=== PATIENT | male | born 1945 | race Caucasian/White ===

== ENCOUNTER 2020-02-06 08:32 | Day surgery (SDC) | payer MEDICARE, BC ==
[2020-01-29 17:01] LABS: BASOPHILS % (AUTO) 0.6 % (0-1); EOSINOPHILS # (AUTO) 0.2 X10'3 (0-0.9); EOSINOPHILS % (AUTO) 2.7 % (0-6); LYMPHOCYTES # (AUTO) 2.2 X10'3 (1.1-4.8); LYMPHOCYTES % (AUTO) 29.1 % (21-51); MEAN CORPUSCULAR HEMOGLOBIN 30.5 PG (27.0-31.0); MEAN CORPUSCULAR HGB CONC 33.4 g/dL (33.0-36.5); MEAN CORPUSCULAR VOLUME 91.4 FL (78-98); MEAN PLATELET VOLUME 7.5 FL (7.4-10.4); MONOCYTES # (AUTO) 0.6 X10'3 (0-0.9); MONOCYTES % (AUTO) 7.7 % (2-12); NEUTROPHILS # (AUTO) 4.4 X10'3 (1.8-7.7); NEUTROPHILS % (AUTO) 59.9 % (42-75); PRE OP HEMATOCRIT 47.5 % (42.0-52.0); PRE OP HEMOGLOBIN 15.9 g/dL (14.0-17.9); PRE OP PLATELET COUNT 190 X10'3 (140-440); PRE OP PROTIME 10.8 SECONDS (9.0-12.0); RED CELL DISTRIBUTION WIDTH 13.8 % (11.5-14.5)
[2020-01-29 17:05] LABS: ALBUMIN 4.2 G/DL (3.4-5.0); ALBUMIN/GLOBULIN RATIO 1.4 (1.1-1.5); ALKALINE PHOSPHATASE 61 IU/L (46-116); BLOOD UREA NITROGEN 15 MG/DL (7-18); BUN/CREATININE RATIO 12.4 (5.4-32.0); CHLORIDE 109 MMOL/L (99-107); CREATININE 1.21 MG/DL (0.60-1.10); PRE OP ALT 56 U/L (30-65); PRE OP ANION GAP 7 (8-16); PRE OP AST 40 U/L (10-37); PRE OP GLUCOSE 92 MG/DL (70-104); PRE OP POTASSIUM 3.9 MMOL/L (3.4-5.1); PRE OP SODIUM 143 MMOL/L (135-145); TOTAL CARBON DIOXIDE 27.2 MMOL/L (24-32); TOTAL PROTEIN 7.1 G/DL (6.4-8.2); eGFR 59 ML/MIN
[~2020-02-06] VITALS: Ht 182.9 cm; Wt 104.3 kg
[2020-02-06] VITALS (19 sets, daily range): BP systolic 125–195; BP diastolic 77–104
[~2020-02-06 08:32] MED LIST: ATOR10TA70 PO; FLO0.4C PO; LISI40TA4 PO; SILD20TA2; cefazolin/dext.iso 2gm/100ml 100 ML IV ONE; famotidine 20mg tablet PO ONE; ringers solution, lacted 1,000 ML IV SCH
[2020-02-06] MEDS ORDERED: ringers solution, lacted 1,000 ML IV SCH (11:11)
[2020-02-06] MEDS ORDERED: proCHLORperazine 10 MG/2 ml inj IV PRN ×2 (11:15→14:05)
[2020-02-06] MEDS ORDERED: morphine 2 MG/ML inj. syringe IV PRN (11:15)
[2020-02-06] MEDS ORDERED: ondansetron/PF 4mg/2ml inj IV PRN ×2 (11:15→14:05)
[2020-02-06] MEDS ORDERED: morphine 4 MG/ML inj SYRINge IV PRN (11:15)
[2020-02-06] MEDS ORDERED: meperidine/PF 25mg/ml syringe IV PRN ×3 (11:15)
[2020-02-06] MEDS ORDERED: MIDAZolam 5mg/5ml vial ONE (12:06)
[2020-02-06] MEDS ORDERED: fentaNYL/PF 50MCG/1 ML 2ML syringe ONE (12:06)
[2020-02-06] MEDS ORDERED: propofol inj 20 ML IV ONE (13:00)
--- NOTE | 2020-02-06 13:59 | NUR ---
Received from OR via , accompanied by Anesthesiologist DR BUTTS and report given by Anesthesiolgist. AWAKENS TO VOICE. VITALS STABLE. BROCK PAIN. CBI WITH LITWE PINK PALE URINE IN BAG.
[2020-02-06] MEDS ORDERED: oxybutynin 5mg tablet PO PRN (14:05)
[2020-02-06] MEDS ORDERED: zolpidem 5mg tablet PO PRN (14:05)
[2020-02-06] MEDS ORDERED: mag hydrox/Alum hydrox/simeth 30ml oral suspension PO PRN (14:05)
[2020-02-06] MEDS ORDERED: LIDOcaine 2% 10ml TOPICAL JELLY (Urojet) TP ONE (14:05)
[2020-02-06] MEDS ORDERED: HYDROcodone/acetaminophen 10/325mg tab PO PRN (14:05)
[2020-02-06] MEDS ORDERED: acetaminophen 325mg tablet PO PRN (14:05)
--- NOTE | 2020-02-06 14:49 | NUR ---
Report called to receiving nurse. Transferred via BED Belongings . Special Issues communicated to receiving nurse. AWAKE AND ORIENTED. VITALS STABLE. BROCK PAIN. SENSATION AT MID THIGH. TO SURGICAL RM 345A AT THIS TIME.
[2020-02-06] MEDS: ceFAZolin 1GM/D5W- ADD-VANTAGE 50 ML IV SCH ×2 (16:22→23:58)
[2020-02-06] MEDS: potassium cl 20mEq in 1/2 NS 1,000 ML IV SCH ×2 (16:22→23:58)
[2020-02-06] MEDS ORDERED: hydrALAZINE 20mg/ml inj. IV PRN (16:50)
[2020-02-06] MEDS: lisinopril 20mg tablet PO SCH (17:11)
--- NOTE | 2020-02-06 18:00 | NUR ---
NOTIFIED DR DONAHUE RE BP 195/104. RESTARTED LISINOPRIL AND GOT ORDER FOR HYDRALAZINE PRN
--- NOTE | 2020-02-06 18:33 | NUR ---
Patient in room [facility]. I have received report from Krystle LE and had the opportunity to ask questions and assume patient care.
--- NOTE | 2020-02-06 18:38 | NUR ---
Problems reprioritized. Patient report given, questions answered & plan of care reviewed with CHIDI LE.
[2020-02-06] MEDS: docusate sod 100mg capsule PO SCH (20:06)
[2020-02-06] MEDS: tamsulosin 0.4mg capsule PO SCH (20:07)
[2020-02-07 00:30] VITALS: BP 131/80
[2020-02-07 05:23] LABS: ALBUMIN 3.1 G/DL (3.4-5.0); ANION GAP 8 (8-16); BLOOD UREA NITROGEN 11 MG/DL (7-18); BUN/CREATININE RATIO 10.2 (5.4-32.0); CALCIUM 7.8 MG/DL (8.5-10.1); CHLORIDE 106 MMOL/L (99-107); CREATININE 1.08 MG/DL (0.60-1.10); GLUCOSE 105 MG/DL (70-104); POTASSIUM 3.9 MMOL/L (3.5-5.1); SODIUM 138 MMOL/L (135-145); TOTAL CARBON DIOXIDE 23.6 MMOL/L (24-32); eGFR 67 ML/MIN
[2020-02-07] MEDS: potassium cl 20mEq in 1/2 NS 1,000 ML IV SCH ×2 (06:02→08:08)
[2020-02-07 06:29] LABS: BASOPHILS % (AUTO) 0.5 % (0-1); EOSINOPHILS # (AUTO) 0.2 X10'3 (0-0.9); EOSINOPHILS % (AUTO) 2.3 % (0-6); HEMOGLOBIN 14.6 g/dl (14.0-17.9); LYMPHOCYTES # (AUTO) 1.3 X10'3 (1.1-4.8); LYMPHOCYTES % (AUTO) 14.9 % (21-51); MEAN CORPUSCULAR HEMOGLOBIN 30.6 PG (27.0-31.0); MEAN CORPUSCULAR HGB CONC 33.3 g/dL (33.0-36.5); MEAN CORPUSCULAR VOLUME 91.8 FL (78-98); MEAN PLATELET VOLUME 7.3 FL (7.4-10.4); MONOCYTES # (AUTO) 0.8 X10'3 (0-0.9); MONOCYTES % (AUTO) 8.8 % (2-12); NEUTROPHILS # (AUTO) 6.3 X10'3 (1.8-7.7); NEUTROPHILS % (AUTO) 73.5 % (42-75); PLATELET COUNT 171 X10'3 (140-440); RED BLOOD COUNT 4.79 X10'6 (4.70-6.10); RED CELL DISTRIBUTION WIDTH 14.3 % (11.5-14.5); WHITE BLOOD COUNT 8.5 X10'3 (4.5-11.0)
--- NOTE | 2020-02-07 06:34 | NUR ---
Problems reprioritized. Patient report given, questions answered & plan of care reviewed with Lyssa LE.
--- NOTE | 2020-02-07 06:54 | NUR ---
Patient in room [facility]. I have received report from Heidy LE and had the opportunity to ask questions and assume patient care.
--- NOTE | 2020-02-07 06:54 | NUR ---
Patient in room [facility]. I have received report from Heidy LE and had the opportunity to ask questions and assume patient care with [facility] student Nicolasa.
[2020-02-07] MEDS ORDERED: pantoprazole 40mg Tablet.DR PO SCH (07:30)
[2020-02-07 07:42] VITALS: BP 146/84
[2020-02-07] MEDS ORDERED: lisinopril 20mg tablet PO SCH (08:00)
[2020-02-07] MEDS ORDERED: atorvastatin 10mg tablet PO SCH (08:00)
[2020-02-07] MEDS: lisinopril 20mg tablet PO SCH (08:08)
[2020-02-07] MEDS: ceFAZolin 1GM/D5W- ADD-VANTAGE 50 ML IV SCH ×2 (08:08→08:10)
[2020-02-07] MEDS: docusate sod 100mg capsule PO SCH (08:09)
[2020-02-07] MEDS: tamsulosin 0.4mg capsule PO SCH (08:10)
[2020-02-07 11:00] VITALS: BP 131/84
[2020-02-07] MEDS ORDERED: DOCU-148 PO (11:10)
--- NOTE | 2020-02-07 12:24 | NUR ---
Discharge instructions reviewed with patient and patient verbalized understanding. Patients IV dc'd by assisted living nursing director cannula intact. Patient given instructions and verbalized adhikari catheter care and how to change from leg bag to night time back. Patient taken to lobby where ride is waiting for him.
== END 2020-02-07 12:18 | disposition home or self-care (01) ==
LOC: PAS 08:32 → SUR 3N 14:02 → PAS 02-07 12:18
PROVIDERS: ATTEND Urology
DX: N40.1 Benign prostatic hyperplasia with lower urinary tract symptoms (principal); N13.8 Other obstructive and reflux uropathy; Z87.442 Personal history of urinary calculi; Z88.6 Allergy status to analgesic agent; Z98.890 Other specified postprocedural states; Z90.49 Acquired absence of other specified parts of digestive tract; K21.9 Gastro-esophageal reflux disease without esophagitis; Z80.3 Family history of malignant neoplasm of breast; Z85.828 Personal history of other malignant neoplasm of skin
CPT/HCPCS: 36415; 52601; 80048; 80053; 82948; 85025; 85610; 85730; 86885; 86900; 86901; 87635; 93005; J0690; J2250; J2704; J3010; 88305; A4346; A4355; A4615; G0378; J3480; J7120